=== PATIENT | male | born 1950 | race Caucasian/White ===

== ENCOUNTER → 2023-09-01 09:37 | Outpatient (REF) | payer OTHER, SELFPAY | LOC: MRI 3T 09:37 | PROVIDERS: ATTENDING PHYSICIAN Radiology Radiation Oncology; FAMILY PHYSICIAN Internal Medicine; REFERRING PHYSICIAN Urology | DX: C61 Malignant neoplasm of prostate (principal) | CPT/HCPCS: 72197; A9575 ==

== ENCOUNTER → 2023-10-29 18:50 | Outpatient (REF) | payer OTHER, SELFPAY | LOC: MRI 3T 18:50 | PROVIDERS: ATTENDING PHYSICIAN Psychiatry & Neurology Neurology; FAMILY PHYSICIAN Internal Medicine | DX: G45.9 Transient cerebral ischemic attack, unspecified (principal) | CPT/HCPCS: 70544; 70551 ==

== ENCOUNTER 2024-01-10 15:59 | Inpatient (IN) | payer OTHER, MEDICARE, SELFPAY ==
[2024-01-10 12:07] VITALS: BP 108/69
[2024-01-10 12:29] LABS: % Basophils 0.9 % (0-2); % Eosinophils 1.7 % (0-6); % Immature Granulocytes 0.3 % (0-0.5); % Lymphocytes 16.9 % (20.5-51.1); % Monocytes 7.5 % (1.7-9.3); % Neutrophils 72.7 % (42.2-75.2); Absolute Basophils 0.1 10^3/uL (0-0.2); Absolute Eosinophils 0.1 10^3/uL (0-0.7); Absolute Lymphocytes 1.3 10^3/uL (1.2-3.4); Absolute Monocytes 0.6 10^3/uL (0.1-0.6); Absolute Neutrophils 5.5 10^3/uL (1.4-6.5); Hematocrit 35.7 % (39.0-52.0); Hemoglobin 12.7 g/dL (13.0-18.0); Mean Corp Hgb Conc. 35.6 g/dL (33.0-37.0); Mean Corpuscular Hgb 32.4 pg (27.0-31.0); Mean Corpuscular Volume 91.1 fL (80.0-94.0); Mean Platelet Volume 9.7 fL (7.4-10.4); Nucleated Red Blood Cells % 0 % (-); Platelet Count 226 10^3/uL (130-400); Red Blood Cell Count 3.92 10^6/uL (4.70-6.10); Red Cell Dist. Width 12.7 % (11.5-14.5); White Blood Cell Count 7.6 10^3/uL (4.8-10.8)
[2024-01-10 13:04] LABS: INR 1.87; PT 21.4 Sec (11.4-14.6)
[2024-01-10 13:14] VITALS: BMI 26.4
[2024-01-10 13:15] VITALS: BP 133/77
--- NOTE | 2024-01-10 13:18 | ED.GENMED ---
History of Present Illness
General
Chief Complaint: Abdominal Symptoms
Time Seen by Provider: 01/10/24 13:05
History of Present Illness
History of Present Illness:
73-year-old male with history of chronic anticoagulant use due to prior pulmonary embolisms and a known clotting disorder presents to the emergency department for evaluation of maroon stool for the past 2 days. He has noticed diarrhea as well.
Denies any abdominal pain. Diarrhea has improved in the past day after starting a brat diet. Denies any fevers or chills. Last colonoscopy was 2008, had benign polypectomies and diverticulosis. Last dose of Xarelto was this morning
Past History
Past History
ED Past Medical History: Cancer (prostate), Other (PMR) and Other (umbilical hernia)
ED Past Surgical History: Negative Cardiac
Social History
Tobacco: Former smoker (>50yrs)
Alcohol: None
Drug: None
Personal:
Living: with family
Employment: Retired
Family History
Family History: Unable to obtain (Familial hypercoagulable state)
Review of Systems
Review of Systems
Allergies reviewed?: Yes
All Other Systems: ROS reviewed and negative except as documented in HPI and ROS
Phy Exam
Physical Exam
Physical Exam:
GEN: Well appearing, NAD, WDWN
HEENT: Oral mucosa moist, no scleral icterus
Cardiac: Regular rate
Lung: No respiratory distress, no tachypnea
Abdomen: Soft, generally nontender
Rectal: Copious maroon stool in the rectal vault, markedly heme positive
MSK: No gross deformity or injuries
Skin: Good color, no pallor or jaundice, no rashes
Neuro: AO x3, moves all extremities freely
Psych: Calm, cooperative
Course
Orders/Labs/Results
Orders:
Orders
01/10/24 Breakfast
Clear Liquid
At Your Request: Full Participation
Does patient need a safe tray?: No
Clear Liquids: No red liquids
01/10/24 12:10
Electrocardiogram (*1) Urgent
Reason for Study: Abdominal Pain
EKG- Treatment ONCE
01/10/24 12:18
Complete Blood Count/With Diff Urgent
Comprehensive Metabolic Panel Urgent
Lipase Urgent
PT/INR [Prothrombin Time] Urgent
01/10/24 15:43
Admit/Transfer Patient As Directed
Co-Sign Provider:
Level of Care: Inpatient admission
Assign to:: Telemetry
Physician / Group: Kymberly
Diagnosis: GI Bleed
Reason for Telemetry: Arrhythmia
Date to Stop Telemetry: 01/13/24
Time to Stop Telemetry: 11:00
Reason for Hospitalization: GI consult, serial Hgb
Expected length of stay greater than two midnights?: Yes
ELOS- Estimated Length of Stay in days: 3
I certify the patient meets the requirements for IP care: Yes
PRN Pain Medication Management As Directed
May give lesser potent ordered pain med per pt: Yes
preference::
Protocol:: Medication orders for pain may be administered in a
manner that supports deferring to patient preference
when the pt is:
- Requesting an ordered lesser potent pain medication.
Least to most potent pain medications are defined
as: acetaminophen < NSAID < tramadol < opioids
(morphine, oxycodone, hydromorphone).
- Requesting a lesser dose of the same medication IF
ORDERED.
- Requesting a less intrusive route of administration
if both routes are prescribed by the provider (PO <
IV).
01/10/24 15:44
Code Status As Directed
Resuscitation Status: Full Code
01/10/24 16:57
0.9% Sodium Chloride 1000 ml [Nss] 1,000 ml IV 60 mls/hr
Acetaminophen [Tylenol] 650 mg PO Q4HPRN PRN
01/10/24 16:57
GASTROINTESTINAL CONSULT Routine
Consulting Provider: Miguel Beal
Was physician already notified: Yes
Activity As Directed
Activity Level: Out of Bed- Chair
I&O [Intake/ Output] As Directed
Frequency: q12h
Pneumatic Compression Sleeves As Directed
Type: Knee high
Vital Signs As Directed
Frequency: Per unit guidelines
DX Deep Vein Thrombosis Video Routine
01/10/24 17:35
H&H Q6H
01/10/24 18:00
Tamsulosin [Flomax] 0.4 mg PO QPM
01/10/24 22:00
Finasteride [Proscar] 5 mg PO HS
01/11/24 00:00
H&H Q6H
01/11/24 06:00
Basic Metabolic Panel IN AM
Complete Blood Count/No Diff IN AM
H&H Q6H
01/11/24 12:00
H&H Q6H
01/13/24 11:00
DC Protocol for Telemetry ONCE
Abnormal Lab Results
01/10/24
12:18
RBC 3.92 L 10^6/uL
(4.70-6.10)
Hgb 12.7 L g/dL
(13.0-18.0)
Hct 35.7 L %
(39.0-52.0)
MCH 32.4 H pg
(27.0-31.0)
Lymphocytes % 16.9 L %
(20.5-51.1)
PT 21.4 H Sec
(11.4-14.6)
Chloride 111 H mmol/L
(98-107)
BUN 21 H mg/dl
(9-20)
Total Protein 5.9 L g/dl
(6.3-8.2)
01/10/24 12:18
01/10/24 12:18
Vital Signs
Initial and Last Documented VS:
Initial Vital Signs
Temp Pulse Resp BP Pulse Ox
98.2 F 85 16 108/69 96
01/10/24 12:07 01/10/24 12:07 01/10/24 12:07 01/10/24 12:07 01/10/24 12:07
Last Documented Vital Signs
Temp Pulse Resp BP Pulse Ox
97.2 F 79 18 102/66 96
01/10/24 19:05 01/10/24 19:05 01/10/24 19:05 01/10/24 19:05 01/10/24 19:05
MDM/Problems Addressed
MDM/Problems Addressed:
Likely diverticular bleeding in the setting of an acute self-limited viral syndrome. Given that he is anticoagulated and took his medications this morning we will admit to the hospital for further observation and management, no high-volume bleeding
to suggest any benefit to a CT angiogram
*Critical Care Note
Total Time (30-74mins, 75-104mins- exclusive of procedures): Not Applicable
ED Attending Note
-
Portions of this chart may have been created with voice recognition software.� Occasional wrong word or��sound alike� substitutions may have occurred due to the inherent limitations of voice recognition software.
Discharge Plan
Departure
Patient Disposition: Admit
Date of Disposition: 01/10/24
Time of Disposition: 14:02
Admit to: Med/Surg
Presentation/result/management discussed w/ accepting MD/DO: Hospitalist
Discharge Problem:
Acute lower GI bleeding
Interventions
Interventions:
*Risk Screen - Suicide Last Done: 01/10/24 13:14
*General Assessment Last Done: 01/10/24 13:14
*Neglect/Abuse Screening Last Done: 01/10/24 13:14
*ED COVID-19 Vaccine History Last Done: 01/10/24 13:14
*Nursing Disposition Last Done: 01/10/24 16:56
PH-Jjardk-Amimcaqtga Assessment Last Done: 01/10/24 13:43
Discharge Date and Time
Discharge Date/Time: 01/10/24 16:56
[2024-01-10 13:53] LABS: ALT (SGPT) 19 U/L (0-50); AST (SGOT) 19 U/L (17-59); Albumin 3.9 g/dl (3.5-5.0); Alkaline Phosphatase 60 U/L (38-126); Blood Urea Nitrogen 21 mg/dl (9-20); Carbon Dioxide 23 mmol/L (22-30); Chloride 111 mmol/L (98-107); Estimated Creatinine Clearance 66 ml/min; Glucose 87 mg/dl (70-99); Lipase 123 U/L (23-300); Potassium 4.5 mmol/L (3.5-5.1); Sodium 139 mmol/L (135-145); Total Bilirubin 0.4 mg/dl (0.2-1.3); Total Protein 5.9 g/dl (6.3-8.2); eGFR > 60.00
--- NOTE | 2024-01-10 15:34 | HPS.HSE ---
Addendum entered and electronically signed by Denzel Traylor MD 01/10/24 17:46:
Passing BRBPR
Hx of coagulopathy and is followed by Dr. Cooney, on chronic Xarelto
Pt seen independently and agree with PA note
Lungs clear
CV reg
Ext no edema
Imp: Acute LGI bleed
coagulopathy
Hx of Prostate Cancer, currently being followed conservatively with watchful waiting
P: GI consult
Xarelto on hold
follow CBC
Original Note:
Family Physician
-
Family Physician: Lb Tamayo MD
Chief Complaint
-
Blood in stool
History of Present Illness
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 Pt reports loose, watery bowel movements since yesterday afternoon. He describes bright, red water in toilet accompanied by
maroon-colored stool with varying degrees of solid. He admits to >24 bowel movements since yesterday. Pt admits to following a BRAT diet, which seems to help. Pt also c/o general abdominal discomfort x 1 day. He describes constant lower abdominal
pressure. He admits to one previous similar episode of GI bleeding associated with taking Aleve while on Xarelto. Pt is still currently on Xarelto d/t hx of PE related to prothrombin [id number] mutation. Patient's last colonoscopy was in 2020 which
revealed diverticulosis and two polyps. He denies any chest pain, palpitations, shortness of breath, or dizziness/lightheadedness.
Medical History
Past Medical History
Past Medical History: Reports Other
Additional Past Medical History:
Pulmonary Embolism
Prothrombin/Factor II Mutation
Polymyalgia Rheumatica
Prostate Cancer
Past Surgical History: Reports Other
Additional Past Surgical History:
Prostate Biopsy
Social History
Tobacco: Non-smoker
Alcohol: None
Drug: None
Family History
Family History: Not pertinent
Allergies / Home Medications
Allergies reflects when Allergies were last updated in [facility].
Home Medications with original date entered in [facility]
Allergy/Medication List:
Allergies
Allergy/AdvReac Type Severity Reaction Status Date / Time
levofloxacin [From Levaquin] Allergy Mild Unknown Verified 01/10/24 12:09
apixaban [From Eliquis] Allergy Rash Verified 01/10/24 12:09
Home Medications
alfuzosin 10 mg tablet,extended release 24 hr (Uroxatral) 10 mg PO QPM Urinary issue 02/27/21
dutasteride 0.5 mg capsule (Avodart) 0.5 mg PO HS Urinary issue 02/27/21
rivaroxaban 10 mg tablet (Xarelto) 10 mg PO DAILY Blood clot prevention/tx 02/27/21
acetaminophen 325 mg tablet (Tylenol) 325 mg PO Q6HPRN PRN mild pain 01/10/24
therapeutic multivitamin 1 tab PO DAILY 01/10/24
Review of Systems
-
A 12 point ROS was completed and negative except as noted: Yes
Constitutional: Denies Fever or Chills
Respiratory: Denies Cough or Trouble Breathing
Cardiac: Denies Chest Pain or Palpitations
Abdomen/GI: Reports See HPI
Physical Exam
Vital Signs
Vital Signs
Temp Pulse Resp BP Pulse Ox
98.2 F 78 14 133/77 98
01/10/24 12:07 01/10/24 13:15 01/10/24 13:15 01/10/24 13:15 01/10/24 13:15
Physical Exam
General: Comfortable and Conversant
HEENT: Anicteric and Moist mucous membranes
Respiratory: Clear and Non Labored Respirations
Cardiac: S1/S2, Regular Rhythm and Murmur (2/6 systolic murmur)
GI: Soft and Tender (mild tenderness decreased as pressure in left lower quadrant and suprapubic region)
Musculoskeletal: No Clubbing, No Cyanosis and No Edema
Skin: Warm and Dry
Neuro: Awake, Alert, Oriented and Nonfocal/grossly intact
Psych: Calm
Laboratory Results
-
01/10/24 12:18
01/10/24 12:18
Laboratory Results
PT 21.4 Sec (11.4-14.6) H 01/10/24 12:18
INR 1.87 01/10/24 12:18
Total Bilirubin 0.4 mg/dl (0.2-1.3) 01/10/24 12:18
AST 19 U/L (17-59) 01/10/24 12:18
ALT 19 U/L (0-50) 01/10/24 12:18
Alkaline Phosphatase 60 U/L (38-126) 01/10/24 12:18
Lipase 123 U/L (23-300) 01/10/24 12:18
Data Reviewed
-
Lab Data: Labs Reviewed by me
Old Records: Reviewed
Impression/Plan
-
GI Bleed, likely lower in nature, possibly diverticular
-Consult GI
-Hold Xarelto
-Trend serial Hgb
-Allow clear liquids, and then NPO after midnight for possible scope tomorrow
Pulmonary Embolism / Prothrombin/Factor II Mutation
-Xarelto on hold due to GI Bleed
-Consult Hematology
Prostate Cancer
-Continue alfuzosin and dutasteride
DVT proph: SCDs
Code Status: Full Code
[2024-01-10 16:05] VITALS: BP 134/61
--- NOTE | 2024-01-10 16:38 | CON.GI ---
Addendum entered and electronically signed by Miguel Beal MD 01/10/24 18:41:
I personally performed a history and physical exam of the patient and discussed management with the resident. I reviewed the resident's note and agree with the documented findings and plan of care HPI/CC.
73-year-old male past medical history of PE in the setting of prothrombin mutation on Xarelto, prostate cancer with no history of radiation, sigmoid diverticulosis which was seen on his colonoscopy in [address] Whaley presenting with bright red
blood per rectum. Suspect this is lower GI bleeding most likely diverticular bleeding. Differential includes arterial vascular malformation. Patient is hemodynamically stable. Hemoglobin has only dropped to 11.4.
Discussed with patient and at bedside. He is allergic to iodine so CTA is not an option (gets red and dye hurts when injected in - he did have IV contrast in 2022 but he may have been premedicated). We could do a nuclear medicine scan but I
do not think he is bleeding enough at this point that it would be positive. We will keep him on clear liquid diet, if he continues to bleed we may need to pursue a colonoscopy which was discussed with him. We did discuss that diverticular bleeding
often stops on its own. Hold Xarelto for now last dose 8/5 AM. We will continue to monitor hemoglobin, monitor for ongoing overt bleeding and further recommendations pending clinical course.
Original Note:
Medical History
Chief Complaint / HPI
Chief Complaint: LGIB
History of Present Illness:
Patient is 73 yo M with PMH of PE in the setting of prothrombin [id number] mutation (on Xarelto) prostate cancer and diverticulosis who presented to ED with rectal bleeding and maroon stools since 3pm yesterday. Pt reports seeing bright red blood
accompanied by maroon-colored loose stool since a day ago. He also mentions increased frequency of bowel movements since yesterday. Reports lower abdominal discomfort. He denies any fever, chest pain, palpitations, shortness of breath, or
dizziness/lightheadedness. Denies any nausea/ vomiting.
He had a similar episode of LGIB a couple years ago after taking Naproxen. He denies any recent change in medications. Denies recent NSAID/steroid use.
Past Medical History
Past Medical History: Cancer (Prostate cancer) and Other (Prothrombin/Factor II Mutation, Polymyalgia Rheumatica, Pulmonary Embolism)
Social History
Tobacco: Non-Smoker
Alcohol: None
Drug: None
Personal:
Living: With Family
Family History
Family History: Cancer (Colon cancer )
Allergies / Home Medications
Allergy/AdvReac Type Severity Reaction Status Date / Time
levofloxacin [From Levaquin] Allergy Mild Unknown Verified 01/10/24 12:09
apixaban [From Eliquis] Allergy Rash Verified 01/10/24 12:09
�Medication �Instructions �Recorded
alfuzosin 10 mg tablet,extended 10 mg PO QPM Urinary issue 02/27/21
release 24 hr (Uroxatral)
dutasteride 0.5 mg capsule 0.5 mg PO HS Urinary issue 02/27/21
(Avodart)
rivaroxaban 10 mg tablet (Xarelto) 10 mg PO DAILY Blood clot 02/27/21
prevention/tx
acetaminophen 325 mg tablet 325 mg PO Q6HPRN PRN mild pain 01/10/24
(Tylenol)
therapeutic multivitamin 1 tab PO DAILY 01/10/24
Review of Systems
-
History Source: Patient
All other systems: A 12 pt ROS was Negative except as stated above in HPI
Abdomen/GI: Reports Abdominal Pain, Diarrhea and Bloody Stools; Denies Nausea or Vomiting
Neurological: Denies Dizzy
Vital Signs
Temp Pulse Resp BP Pulse Ox
98.2 F 67 14 134/61 97
01/10/24 12:07 01/10/24 16:05 01/10/24 13:15 01/10/24 16:05 01/10/24 16:05
Physical Exam
Exam
General: Well Developed and No Apparent Distress
HEENT: Normocephalic, Anicteric and Moist Mucous Membranes
Respiratory: Clear
Cardiac: S1/S2 and Regular Rhythm
GI: Soft, Non Tender, Normal Bowel Sounds and Distended
Neuro: Awake, Alert, Oriented and AO x 3
Psych: Calm
Results
WBC 7.6 10^3/uL (4.8-10.8) 01/10/24 12:18
Hgb 12.7 g/dL (13.0-18.0) L 01/10/24 12:18
Hct 35.7 % (39.0-52.0) L 01/10/24 12:18
MCV 91.1 fL (80.0-94.0) 01/10/24 12:18
Plt Count 226 10^3/uL (130-400) 01/10/24 12:18
Absolute Neuts (auto) 5.5 10^3/uL (1.4-6.5) 01/10/24 12:18
PT 21.4 Sec (11.4-14.6) H 01/10/24 12:18
INR 1.87 01/10/24 12:18
Sodium 139 mmol/L (135-145) 01/10/24 12:18
Potassium 4.5 mmol/L (3.5-5.1) 01/10/24 12:18
Chloride 111 mmol/L (98-107) H 01/10/24 12:18
Carbon Dioxide 23 mmol/L (22-30) 01/10/24 12:18
BUN 21 mg/dl (9-20) H 01/10/24 12:18
Creatinine 1.0 mg/dL (0.7-1.3) 01/10/24 12:18
Calcium 10.0 mg/dl (8.4-10.2) 01/10/24 12:18
Total Bilirubin 0.4 mg/dl (0.2-1.3) 01/10/24 12:18
AST 19 U/L (17-59) 01/10/24 12:18
ALT 19 U/L (0-50) 01/10/24 12:18
Alkaline Phosphatase 60 U/L (38-126) 01/10/24 12:18
Lipase 123 U/L (23-300) 01/10/24 12:18
Diagnostic Image Results:
Prior GI Procedures:
EGD: 08/30/20
Tortuous esophagus.
- Z-line regular, at the gastroesophageal junction.
Biopsied.
- 4 cm hiatal hernia.
- One mucosal papule (nodule) found in the stomach.
Complete removal was accomplished. Tattooed.
- Normal stomach. Biopsied.
- Normal examined duodenum. Biopsied.
Colonoscopy: 08/30/20
- No findings to explain ADOLFO on this examination. Will
follow biopsies as below
- One 2 mm polyp in the cecum, removed with a jumbo
cold forceps. Resected and retrieved.
- One 10 mm polyp in the ascending colon, removed with
a cold snare. Resected and retrieved.
- The examined portion of the ileum was normal.
Biopsied.
- The entire examined colon is normal. Biopsied.
- Diverticulosis in the sigmoid colon.
- Non-bleeding internal hemorrhoids.
Assessment / Plan
-
73 yo M with PMH of PE in the setting of prothrombin [id number] mutation (on Xarelto) prostate cancer, and diverticulosis presenting with LGIB. Patient is hemodynamically stable. Hgb is stable at 12.7.
# LGIB
- Closely monitor v/s and h/h
- Clear liquids for now
- Blood tx if hgb drops <7
- Possible CTA/ cscope if bleeding not resolved (Patient mentions he is allergic to contrast?)
-
-
Thank you for consultation and allowing me to participate in the patient's care. Please call the union representative GI physician during the after hours with any questions or concerns.
[2024-01-10 17:13] VITALS: BMI 25.8
[2024-01-10 17:15] VITALS: BP 119/76
--- NOTE | 2024-01-10 17:30 | PTCARENOTE ---
Received patient from ED via stretcher. Pt AAOX3. Pox: 96% RA. Patient denies pain/SOB. at bedside. Call treviño within reach. Plan of care ongoing.
[2024-01-10 17:51] LABS: Hematocrit 32.2 % (39.0-52.0); Hemoglobin 11.4 g/dL (13.0-18.0)
[2024-01-10] MEDS: FLOMAX 0.4 MG PO (18:10)
[2024-01-10] MEDS: NSS 1000 IV (18:10)
[2024-01-10 19:05] VITALS: BP 102/66
[2024-01-10] MEDS: PROSCAR 5 MG PO (21:27)
[2024-01-10 23:14] VITALS: BP 90/48
[2024-01-11] VITALS (7 sets, daily range): BP systolic 93–134; BP diastolic 51–64
--- NOTE | 2024-01-11 07:33 | W.PN.HOSP.TC ---
Today's Communication/Plan
-
Monitor hemoglobin. IV fluids. Possible colonoscopy in a.m.
Assessment / Plan
Assessment / Plan
Physical exam:
General: Acutely ill
HEENT: Normocephalic, Atraumatic and Moist Mucous Membranes
Respiratory: Clear to Auscultation; Negative Wheezes, Rales or Rhonchi
Cardiac: Regular Rhythm and S1/S2, no murmurs rubs or gallops
GI: Bowel sounds normal, Soft, Umbilical hernia easily reducible, Nontender and Nondistended, No Hepatosplenomegaly.
Musculoskeletal: No Clubbing, No Cyanosis and No Edema
Neuro: Awake, Alert and Oriented, no neurological deficits.
Psych: Calm normal judgment and insight
A/P:
Acute GI bleed/acute blood loss anemia:
IV fluid boluses and continue maintenance
Keep on clear liquid diet
Keep enough vascular access
Repeat hemoglobin this morning and later this afternoon.
Hemoglobin 10.1 latest from a baseline of 12.7 upon admission over the last 24 hours.
Consent for blood transfusion on the chart
Will transfuse blood if needed
Hold anticoagulants
GI consult appreciated, awaiting for follow-up from GI today.
Plan for possible colonoscopy tomorrow-defer to GI for final decision.
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
Xarelto on hold due to GI Bleed
Hematology consult pending
Prostate Cancer:
Continue alfuzosin and dutasteride
BPH:
Continue finasteride
Polymyalgia rheumatica:
Symptomatic care
No maintenance medications in the moment and no flare-ups
DVT proph: SCDs
Code Status: Full Code
Anticipated Discharge: 24 - 48 hours
Subjective/Interval History
-
Date of Service: January 11, 2024
Patient continues to report bright blood per rectum associated with mixed maroon stools today. Blood pressure relatively low requiring IV fluid boluses this morning. No abdominal pain nausea vomiting. Mild lightheadedness but not moving around
much.
Objective Data
-
Labs:
Laboratory Results
01/11/24 01/11/24 01/11/24
01:22 06:00 12:00
WBC Pending
Hgb 10.0 L Pending Pending
Hct 27.0 L Pending Pending
Plt Count Pending
Sodium Pending
Potassium Pending
Chloride Pending
Carbon Dioxide Pending
BUN Pending
Creatinine Pending
Glucose Pending
Calcium Pending
Vital Signs:
Vital Signs
Temp Pulse Resp BP Pulse Ox
98.2 F 67 18 93/51 98
01/11/24 03:05 01/11/24 03:05 01/11/24 03:05 01/11/24 03:05 01/11/24 03:05
I&O
01/10/24 01/11/24 01/12/24
06:59 06:59 06:59
Intake Total 1200 / 1200
Balance 1200 / 1200
[2024-01-11] MEDS: NSS 500 IV (08:12)
[2024-01-11 09:05] LABS: Hematocrit 30.1 % (39.0-52.0); Hemoglobin 10.6 g/dL (13.0-18.0); Mean Corp Hgb Conc. 35.2 g/dL (33.0-37.0); Mean Corpuscular Hgb 31.8 pg (27.0-31.0); Mean Corpuscular Volume 90.4 fL (80.0-94.0); Platelet Count 210 10^3/uL (130-400); Red Blood Cell Count 3.33 10^6/uL (4.70-6.10); Red Cell Dist. Width 12.8 % (11.5-14.5); White Blood Cell Count 6.1 10^3/uL (4.8-10.8)
[2024-01-11] MEDS: NSS 1000 IV ×2 (09:12→22:53)
[2024-01-11 09:34] LABS: Blood Urea Nitrogen 18 mg/dl (9-20); Calcium 9.1 mg/dl (8.4-10.2); Carbon Dioxide 24 mmol/L (22-30); Chloride 109 mmol/L (98-107); Estimated Creatinine Clearance 66 ml/min; Glucose 88 mg/dl (70-99); Potassium 4.2 mmol/L (3.5-5.1); Sodium 137 mmol/L (135-145); eGFR > 60.00
[2024-01-11 09:38] LABS: Hematocrit 28.3 % (39.0-52.0); Hemoglobin 10.1 g/dL (13.0-18.0)
--- NOTE | 2024-01-11 11:28 | CON.ONC ---
Impression
Impression
BRBPR, suspected LGIB
HX DVT/PE 2019
Hx ADOLFO resolved with parenteral iron 2020
prothrombin gene mutation
prostate cancer
Plan
Plan
check iron studies, monitor H/H
GI following, plan for scope
hold DOAC, defer to GI when safe to resume
High risk VTE with prothrombin gene mutation, lifelong DOAC ppx recommended unless absolute contraindication
If develops acute LE edema or acute cardiorespiratory changes then would pursue US and CTA
OP follow up with urology for continued management of prostate cancer
Patient History
History of Present Illness
Consulted by SULEMAN Daugherty
Reason for consult: Hx ADOLFO, prothrombin gene mutation, hx VTE
73yo M with significant PMH DVT/PE March 2020, prothrombin gene mutation on lifelong DOAC ppx, and prostate cancer presented to ER with bloody stools x 1 day. He reports loose, watery stools with BRBPR. He moved his bowels >20x yesterday
which prompted him to seek further ER evaluation. His diarrhea is associated with mild abdominal cramping/pressure. His symptoms improved with diet adjustment to BRAT diet. He reports that last colonoscopy in 2020 showed diverticulosis and benign
polpys. He does have a history of iron deficient anemia that resolved with parenteral iron in 2020. His Hgb today is 10.1g/dL, historical baseline Hgb 14-15g/dL.
Denies fever, chills, cough, chest pain, dizziness, sob, weathers, nausea, vomiting, weight loss, or pain.
Past-Medical/Surgical History
PMH pulmonary emboli, DVT, heterozygous prothrombin gene mutation, prostate cancer [place] [facility], iron deficient anemia
PSH: prostate biopsy
Social , lives with , pmp project manager, former smoker, rare ETOH, denies recreational drugs
Family: father colon cancer, sibling with colon cancer
Patient Medication
�Medication �Instructions �Recorded �Confirmed �Last Taken �Type
alfuzosin 10 mg tablet,extended 10 mg PO QPM Urinary issue 02/27/21 01/10/24 01/09/24 History
release 24 hr (Uroxatral)
dutasteride 0.5 mg capsule 0.5 mg PO HS Urinary issue 02/27/21 01/10/24 01/09/24 History
(Avodart)
rivaroxaban 10 mg tablet (Xarelto) 10 mg PO DAILY Blood clot 02/27/21 01/10/24 01/10/24 History
prevention/tx
acetaminophen 325 mg tablet 325 mg PO Q6HPRN PRN mild pain 01/10/24 01/10/24 01/09/24 History
(Tylenol)
therapeutic multivitamin 1 tab PO DAILY 01/10/24 01/10/24 01/10/24 History
Active Medications
Generic Name Dose Route Start Last Admin
Trade Name Freq PRN Reason Stop Dose Admin
Acetaminophen 650 mg 01/10/24 16:57
Acetaminophen 325 Mg Tablet PO 02/07/24 16:56
Q4HPRN PRN
mild pain/ fever>100.5F
Finasteride 5 mg 01/10/24 22:00 01/10/24 21:27
Finasteride 5 Mg Tablet PO 02/07/24 21:59 5 mg
HS TERESITA Administration
Sodium Chloride 1,000 mls @ 60 mls/hr 01/10/24 16:57 01/11/24 09:12
Nss IV 1,000 mls
.[id number] TERESITA Administration
Sodium Chloride 0 flush 01/10/24 17:00
Sodium Chloride 0.9% (Flush) Syringe IV 02/07/24 16:59
PER PROTOCOL TERESITA
Tamsulosin HCl 0.4 mg 01/10/24 18:00 01/10/24 18:10
Tamsulosin 0.4 Mg Capsule PO 02/07/24 17:59 0.4 mg
QPM TERESITA Administration
Review of Systems
-
Review of systems notable for subjective, otherwise negative
Physical Exam
-
General: Well Developed and No Apparent Distress
HEENT: Moist Mucous Membranes; Negative Jaundice
Cardiology: Normal Sinus Rhythm
Pulmonary: Clear
GI: Soft
Extremities: Pulses Present; Negative Edema
Neurology: Non Focal
Skin: Warm
Psych: Calm
Labs
Lab Results
WBC 6.1 10^3/uL (4.8-10.8) 01/11/24 08:05
RBC 3.33 10^6/uL (4.70-6.10) L 01/11/24 08:05
Hgb Cancelled 01/11/24 12:00
Hct Cancelled 01/11/24 12:00
MCV 90.4 fL (80.0-94.0) 01/11/24 08:05
MCH 31.8 pg (27.0-31.0) H 01/11/24 08:05
MCHC 35.2 g/dL (33.0-37.0) 01/11/24 08:05
RDW 12.8 % (11.5-14.5) 01/11/24 08:05
Plt Count 210 10^3/uL (130-400) 01/11/24 08:05
MPV 10.0 fL (7.4-10.4) 01/11/24 08:05
Abs Immat Gran (auto) 0.0 10^3/uL (0-0.05) 01/10/24 12:18
Absolute Neuts (auto) 5.5 10^3/uL (1.4-6.5) 01/10/24 12:18
Absolute Lymphs (auto) 1.3 10^3/uL (1.2-3.4) 01/10/24 12:18
Absolute Monos (auto) 0.6 10^3/uL (0.1-0.6) 01/10/24 12:18
Absolute Eos (auto) 0.1 10^3/uL (0-0.7) 01/10/24 12:18
Absolute Basos (auto) 0.1 10^3/uL (0-0.2) 01/10/24 12:18
Immature Gran % 0.3 % (0-0.5) 01/10/24 12:18
Neutrophils % 72.7 % (42.2-75.2) 01/10/24 12:18
Lymphocytes % 16.9 % (20.5-51.1) L 01/10/24 12:18
Monocytes % 7.5 % (1.7-9.3) 01/10/24 12:18
Eosinophils % 1.7 % (0-6) 01/10/24 12:18
Basophils % 0.9 % (0-2) 01/10/24 12:18
Creatinine 1.0 mg/dL (0.7-1.3) 01/11/24 08:05
Vital Signs
Vital Signs
Temp Pulse Resp BP Pulse Ox
98.1 F 78 14 105/61 98
01/11/24 11:00 01/11/24 11:00 01/11/24 11:00 01/11/24 11:00 01/11/24 11:00
--- NOTE | 2024-01-11 13:30 | W.PN.GI.CBS2 ---
Addendum entered and electronically signed by Eli Koch MD 01/11/24 15:15:
I saw and examined the patient.
The Resident's note was reviewed and I agree with the note.
Comment: Patient reports few episodes of maroon stool even this morning, no abdominal pain. Did have an episode of hypotension overnight. No blood transfusion.
Currently on clear liquid diet.
Last Xarelto dose 01/10/2024 AM
Given ongoing rectal bleeding, will plan for colonoscopy tomorrow to rule out diverticular bleed versus AVMs versus other.
History of prostate cancer but no radiation.
Will give MiraLAX prep today and tomorrow morning, n.p.o. past midnight.
Will follow-up
.
Original Note:
Today's Communication / Plan
-
Possible colonoscopy tomorrow
Assessment / Plan
-
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 Patient is currently hemodynamically stable. Hgb dropped
from 12.7-10.1. Patient became hypotensive around midnight and early in the morning which was resolved after bolus IV fluid.
# LGIB
- Continue to closely monitor v/s and h/h; Blood tx if hgb drops <7
- Continue clear liquids for now
- Possible cscope tomorrow
- Bowel prep and keep n.p.o. after midnight
Subjective
Subjective
Date of Service: January 11, 2024
Patient is alert and oriented. Does not complain of any dizziness, lightheadedness, chest pain or shortness of breath. Did notice maroon-colored stools and bright red blood from rectum this morning. Frequency of bowel movements has decreased.
Believes bleeding amount is about the same as yesterday. Could tolerate clear liquids without any nausea or vomiting. Patient became hypotensive overnight and early in the morning which was resolved after bolus IV fluid.
Objective
Data Reviewed
Laboratory Data:
Laboratory Results
01/11/24 12:00
01/11/24 08:05
Laboratory Results
PT 21.4 Sec (11.4-14.6) H 01/10/24 12:18
INR 1.87 01/10/24 12:18
Total Bilirubin 0.4 mg/dl (0.2-1.3) 01/10/24 12:18
AST 19 U/L (17-59) 01/10/24 12:18
ALT 19 U/L (0-50) 01/10/24 12:18
Alkaline Phosphatase 60 U/L (38-126) 01/10/24 12:18
Lipase 123 U/L (23-300) 01/10/24 12:18
Vital Signs and I&O:
Vital Signs
Temp Pulse Resp BP Pulse Ox
98.1 F 78 14 105/61 97
01/11/24 11:00 01/11/24 11:00 01/11/24 11:00 01/11/24 11:00 01/11/24 11:15
I&O
01/10/24 01/11/24 01/12/24
06:59 06:59 06:59
Intake Total 1200 / 1200 500 / 500
Balance 1200 / 1200 500 / 500
Physical Exam
Physical Exam
HEENT: Anicteric and Moist mucous membranes
Cardiology: Normal Sinus Rhythm, S1 and S2
Pulmonary: Clear
GI: Soft, Distended and Non Tender
Extremities: No Edema
--- NOTE | 2024-01-11 14:29 | CM ---
Patient seen bedside with , initial assessment completed. Patient resides in a [facility] style home, 5 steps to enter. Patient denies use of DME, VN, or SNF history. Patient PCP Lb Tamayo, pharmacy [facility]. Patient confirms prescription
coverage. CM reviewed chart, possible colonoscopy tomorrow. CM will continue to follow for all discharge planning needs.
Plan; home no needs likely.
[2024-01-11 15:00] LABS: Hematocrit 27.4 % (39.0-52.0); Hemoglobin 9.8 g/dL (13.0-18.0)
[2024-01-11] MEDS: GAVILAX 238 GM PO (16:36)
[2024-01-11] MEDS: FLOMAX 0.4 MG PO (17:08)
[2024-01-11] MEDS: PROSCAR 5 MG PO (21:16)
[2024-01-12] VITALS (8 sets, daily range): BP systolic 14–121; BP diastolic 55–75
[2024-01-12] MEDS: GAVILAX 238 GM PO (04:49)
[2024-01-12 07:43] LABS: Hematocrit 27.4 % (39.0-52.0); Hemoglobin 9.8 g/dL (13.0-18.0); Mean Corp Hgb Conc. 35.8 g/dL (33.0-37.0); Mean Corpuscular Hgb 32.5 pg (27.0-31.0); Mean Corpuscular Volume 90.7 fL (80.0-94.0); Mean Platelet Volume 9.7 fL (7.4-10.4); Platelet Count 190 10^3/uL (130-400); Red Blood Cell Count 3.02 10^6/uL (4.70-6.10); White Blood Cell Count 4.3 10^3/uL (4.8-10.8)
[2024-01-12 08:19] LABS: Blood Urea Nitrogen 9 mg/dl (9-20); Calcium 9.1 mg/dl (8.4-10.2); Carbon Dioxide 19 mmol/L (22-30); Chloride 114 mmol/L (98-107); Estimated Creatinine Clearance 73 ml/min; Glucose 81 mg/dl (70-99); Potassium 3.8 mmol/L (3.5-5.1); Sodium 138 mmol/L (135-145); eGFR > 60.00
[2024-01-12] MEDS: NSS 1000 IV (10:48)
--- NOTE | 2024-01-12 12:51 | PN.CDI ---
CDI
- -
CDI:
Physician Documentation Request
Admit Date: 01/10/24 15:59
Dear Doctor Zan,
Please review the following and provide your response in the progress notes.
Clinical Indicators:
PN, 01/10
#Acute GI bleed/acute blood loss anemia:
#...Hold anticoagulants
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
#Xarelto on hold due to GI Bleed
Please clarify the relationship, if any, between these conditions:
Yes, Acute GI bleed is enhanced by/contributed to/related to/associated with/due to Xarelto.
No, Acute GI bleed is not enhanced by/contributed to/related to/associated with/due to Xarelto but it is due to ___. (Please specify)
Other(please specify)
Use of terms such as suspected, likely, concern for, or probable (associated with a specific diagnosis that is being evaluated, monitored, or treated as if it exists) are acceptable and can be coded in the inpatient setting, when documented at the
time of discharge.
Thank you,
Dipti Chavez RN BSN CCDS
CDI Specialist
please contact via tiger text
Please use your independent medical judgment in providing your response.
--- NOTE | 2024-01-12 12:58 | PN.CDI ---
CDI
- -
CDI:
Physician Documentation Request
Admit Date: 01/10/24 15:59
Dear Doctor Zan,
Please review the following and provide your response in the progress notes.
Clinical Indicators:
PN, 01/10
#Acute GI bleed/acute blood loss anemia:
#...Hold anticoagulants
#Pulmonary Embolism / Prothrombin [id number] mutation, heterozygous:
#Xarelto on hold due to GI Bleed
Please clarify the relationship, if any, between these conditions:
Yes, Acute GI bleed is enhanced by/contributed to/related to/associated with/due to Xarelto.
No, Acute GI bleed is not enhanced by/contributed to/related to/associated with/due to Xarelto but it is due to ___. (Please specify)
Other(please specify)
Laboratory Tests
01/10/24
12:18
PT 21.4 H
INR 1.87
Use of terms such as suspected, likely, concern for, or probable (associated with a specific diagnosis that is being evaluated, monitored, or treated as if it exists) are acceptable and can be coded in the inpatient setting, when documented at the
time of discharge.
Thank you,
Dipti Chavez RN BSN CCDS
CDI Specialist
please contact via tiger text
Please use your independent medical judgment in providing your response.
--- NOTE | 2024-01-12 13:24 | W.PN.GI.CBS2 ---
Today's Communication / Plan
-
Restart Xarelto- start low-residue diet
Assessment / Plan
-
73 yo M with PMH of PE in the setting of prothrombin [id number] mutation (on Xarelto) prostate cancer, and diverticulosis presenting with maroon-colored stools and bright red blood per rectum. Patient is currently hemodynamically stable. Hgb further
dropped to 9.8 this a.m. Colonoscopy performed today. Diverticulosis in the sigmoid colon, in the descending colon, in the transverse colon and at the hepatic flexure. Internal hemorrhoids.
# Recommendations
- Continue to closely monitor v/s and h/h; Blood tx if hgb drops <7
- Can start low-residue diet
- OK to restart Xarelto.
- Outpatient GI follow up in 2-3 months.
Subjective
Subjective
Date of Service: January 12, 2024
Patient is alert and oriented. Does not complain of SOB/CP.
Objective
Data Reviewed
Laboratory Data:
Laboratory Results
01/12/24 07:24
01/12/24 07:24
Laboratory Results
PT 21.4 Sec (11.4-14.6) H 01/10/24 12:18
INR 1.87 01/10/24 12:18
Total Bilirubin 0.4 mg/dl (0.2-1.3) 01/10/24 12:18
AST 19 U/L (17-59) 01/10/24 12:18
ALT 19 U/L (0-50) 01/10/24 12:18
Alkaline Phosphatase 60 U/L (38-126) 01/10/24 12:18
Lipase 123 U/L (23-300) 01/10/24 12:18
Vital Signs and I&O:
Vital Signs
Temp Pulse Resp BP Pulse Ox
97.9 F 62 12 118/72 97
01/12/24 13:08 01/12/24 13:08 01/12/24 13:08 01/12/24 13:08 01/12/24 13:08
I&O
01/11/24 01/12/24 01/13/24
06:59 06:59 06:59
Intake Total 1200 / 1200 3860 / 3860
Balance 1200 / 1200 3860 / 3860
--- NOTE | 2024-01-12 13:54 | W.PN.HOSP.TC ---
Addendum entered and electronically signed by Héctor Zuluaga MD 01/12/24 15:10:
Discussed with patient, he tolerated low residue diet. Discharge today with outpatient follow-up
Time of discharge 37 minutes
Original Note:
Today's Communication/Plan
-
Monitor vital signs
see plan
Monitor after colonoscopy, if improving then likely can be discharged
Restart Xarelto
Assessment / Plan
Assessment / Plan
Physical exam:
General: Acutely ill
HEENT: Normocephalic, Atraumatic and Moist Mucous Membranes
Respiratory: Clear to Auscultation; Negative Wheezes, Rales or Rhonchi
Cardiac: Regular Rhythm and S1/S2, no murmurs rubs or gallops
GI: Bowel sounds normal, Soft, Umbilical hernia easily reducible, Nontender and Nondistended
Musculoskeletal: No Clubbing, No Cyanosis and No Edema
Neuro: Awake, Alert and Oriented, no neurological deficits.
Psych: Calm normal judgment and insight
A/P:
Acute GI bleed/acute blood loss anemia:
Likely exacerbated by Xarelto
Status post colonoscopy 01/11 with diverticulosis, internal hemorrhoids. Patient will follow-up with gastroenterology for video capsule endoscopy outpatient. Okay to restart Xarelto per GI standpoint. Low residue diet. If tolerates and likely can
be discharged
Restart Xarelto
Pulmonary Embolism / Prothrombin [id number] mutation, heterozygous:
Xarelto
Hematology consult pending
Prostate Cancer:
Continue alfuzosin and dutasteride
BPH:
Continue finasteride
Polymyalgia rheumatica:
Symptomatic care
No maintenance medications in the moment and no flare-ups
DVT proph: SCDs
Code Status: Full Code
Anticipated Discharge: Within 24 hours
Subjective/Interval History
-
Date of Service: January 12, 2024
Denies pain
Objective Data
-
Labs:
Laboratory Results
01/12/24
07:24
WBC 4.3 L
Hgb 9.8 L
Hct 27.4 L
Plt Count 190
Sodium 138
Potassium 3.8
Chloride 114 H
Carbon Dioxide 19 L
BUN 9
Creatinine 0.9
Glucose 81
Calcium 9.1
Vital Signs:
Vital Signs
Temp Pulse Resp BP Pulse Ox
97.9 F 62 12 118/72 97
01/12/24 13:08 01/12/24 13:08 01/12/24 13:08 01/12/24 13:08 01/12/24 13:08
I&O
01/11/24 01/12/24 01/13/24
06:59 06:59 06:59
Intake Total 1200 / 1200 3860 / 3860
Balance 1200 / 1200 3860 / 3860
--- NOTE | 2024-01-12 15:10 | W.DCSUMMARY ---
Discharge Summary
Discharge Data
Date of Admission: 01/10/24
Date of Discharge: 01/12/24
-
Pending Results: No
Hospital Course
73-year-old male with past medical history of pulmonary embolism, prothrombin mutation, prostate cancer, BPH, polymyalgia rheumatica came to the hospital with acute GI bleeding with acute blood loss anemia which was likely thought was exacerbated by
Xarelto. Patient was seen by gastroenterology throughout hospitalization and underwent colonoscopy on 01/12/2024 which showed diverticulosis and internal hemorrhoids. There was no acute bleeding that was noted on colonoscopy. GI instructed patient
to follow-up with them outpatient for capsule endoscopy. Patient was able to tolerate low residue diet prior to discharge. Gastroenterology also recommended patient to restart Xarelto on discharge. Since patient hemoglobin was stable and he was
feeling better, he was then discharged home with instructions to follow-up with all his physicians outpatient.
Discharge Plan
-
Patient Disposition: Home (Routine Discharge)
Discharge Diagnosis/Procedures: Acute GI bleeding/acute blood loss anemia exacerbated by Xarelto
Internal hemorrhoids diverticulosis
Condition: Good
Diet: Low Residue
Activity: As tolerated
Driving Restrictions: As prior to admission
Bathing Restrictions: None
Blood Work: CBC next week with primary care provider
Referrals:
Lb Tamayo MD [Family Provider] - in less than 1 week
Eli Koch MD [Active] - in less than 1 week
Prescriptions:
Continued
dutasteride [Avodart] 0.5 MG capsule
0.5 mg PO HS
alfuzosin [Uroxatral] 10 MG tablet extended release 24 hr
10 mg PO QPM
Xarelto 10 MG tablet
10 mg PO DAILY
acetaminophen [Tylenol] 325 mg Tablet
325 mg PO Q6HPRN PRN (Reason: mild pain)
therapeutic multivitamin Tablet
1 tab PO DAILY
Discharge Orders:
Discharge Patient (As Directed); Ordered 01/12/24
Ordered By: Héctor Zuluaga
Discharge Date and Time
Discharge Date/Time: 01/12/24 16:18
Print Language: UKRAINIAN
== END 2024-01-12 16:18 | disposition home or self-care (01) | DRG 378 ==
LOC: 4 EAST ACU 15:59
PROVIDERS: Emergency Medicine; Hospitalist; Internal Medicine Gastroenterology; Physician Assistant Medical; ADMITTING PHYSICIAN Internal Medicine; ATTENDING PHYSICIAN Internal Medicine; CONSULT PHYSICIAN Internal Medicine Gastroenterology; EMERGENCY PHYSICIAN Student in an Organized Health Care Education/Training Program; FAMILY PHYSICIAN Internal Medicine
PROC: 0DJD8ZZ Inspection of Lower Intestinal Tract, Via Natural or Artificial Opening Endoscopic (ICD-10-PCS; 2024-01-12)
DX: K57.31 Diverticulosis of large intestine without perforation or abscess with bleeding (principal); D62 Acute posthemorrhagic anemia; D68.32 Hemorrhagic disorder due to extrinsic circulating anticoagulants; D68.52 Prothrombin gene mutation; M35.3 Polymyalgia rheumatica; N40.0 Benign prostatic hyperplasia without lower urinary tract symptoms; T45.515A Adverse effect of anticoagulants, initial encounter; K64.8 Other hemorrhoids; Z87.891 Personal history of nicotine dependence; Z86.718 Personal history of other venous thrombosis and embolism; Z86.711 Personal history of pulmonary embolism; Z79.01 Long term (current) use of anticoagulants; Z85.46 Personal history of malignant neoplasm of prostate; Z80.0 Family history of malignant neoplasm of digestive organs
CPT/HCPCS: 80048; 80053; 83690; 85014; 85018; 85025; 85027; 85610; 86850; 86900; 86901; 93005; 99285

== ENCOUNTER → 2024-01-25 07:26 | Outpatient (REF) | payer OTHER, MEDICARE, SELFPAY | LOC: EMG 07:26 | PROVIDERS: ATTENDING PHYSICIAN Psychiatry & Neurology Neurology; FAMILY PHYSICIAN Internal Medicine; REFERRING PHYSICIAN Chiropractor | DX: G62.9 Polyneuropathy, unspecified (principal) | CPT/HCPCS: 95886; 95913 ==

== ENCOUNTER → 2024-02-19 08:43 | Outpatient (REF) | payer OTHER, MEDICARE, SELFPAY ==
[2024-02-19 10:39] LABS: TSH Reflex To Free T4 1.81 uIU/ml (0.47-4.68)
[2024-02-19 13:24] LABS: Glycohemoglobin (HgbA1c) 4.7 % (4.0-5.6)
== END ==
LOC: REG 08:43
PROVIDERS: ATTENDING PHYSICIAN Psychiatry & Neurology Neurology; FAMILY PHYSICIAN Internal Medicine
DX: G62.9 Polyneuropathy, unspecified (principal)
CPT/HCPCS: 36415; 83036; 84155; 84165; 84425; 84443

== ENCOUNTER → 2024-07-22 09:28 | Outpatient (REF) | payer OTHER, MEDICARE, SELFPAY | LOC: MRI 3T 09:28 | PROVIDERS: ATTENDING PHYSICIAN Pain Medicine Interventional Pain Medicine; FAMILY PHYSICIAN Internal Medicine | DX: M54.16 Radiculopathy, lumbar region (principal) | CPT/HCPCS: 72148 ==